=== PATIENT | female | born 1950 | race Caucasian/White ===

== ENCOUNTER 2019-01-08 18:05 | Emergency (ER) | payer MEDICARE, OTHER ==
[~2019-01-08] VITALS: Ht 162.6 cm; Wt 65.8 kg
[~2019-01-08 18:05] MED LIST: AMPYRA10 MG PO; AVONEX IM; AZO CRANBERRY1 EAC1 PO; CALCIUM 600 +1 EAC5 PO; CLA1000 MG PO; COLESTIPOL HCL1 G1 PO; GABAPENTIN; LODINE; LODINE XL400 MG PO; NEURONTIN 300M300 M2 PO; NEURONTIN600 MG PO; NORCO 5-325 TA1 EACH PO; NORVASC 5 MG TAB5 MG PO; PRILOSEC 10MG C10 MG PO; PROVIGIL; VALIUM5 MG PO; VESICARE; VESICARE10 M1 PO; VITAMIN B-12500 MCG PO; VITAMIN D1000 UNI1 PO; ZANAFLEX PO; ZOLOFT; ZOLOFT 50 MG TA50 M1 PO
[2019-01-08 19:55] VITALS: BP 123/78
== END 2019-01-08 19:56 | disposition home or self-care (01) ==
LOC: M.ERS 18:05
DX: S22.31XA Fracture of one rib, right side, initial encounter for closed fracture (principal); G35 Multiple sclerosis; Z96.652 Presence of left artificial knee joint; Z90.710 Acquired absence of both cervix and uterus; W01.0XXA Fall on same level from slipping, tripping and stumbling without subsequent striking against object, initial encounter; Y93.89 Activity, other specified; Y92.89 Other specified places as the place of occurrence of the external cause; Y99.8 Other external cause status